=== PATIENT | female | born 2005 | race Caucasian/White ===

== ENCOUNTER 2024-11-09 16:16 | Emergency (ER) | payer SELFPAY ==
[2024-11-09 16:28] VITALS: BP 119/71; PULSE 88; RESP 18; TEMP 36.8; O2SAT 100
--- NOTE | 2024-11-09 16:58 | ED.FEMALEGU ---
HPI - Female Genitourinary General Chief complaint: Urogenital-Female Stated complaint: Std Test Time Seen by Provider: 11/09/24 16:38 Source: patient, RN notes reviewed and old records reviewed Mode of arrival: ambulatory Limitations: no limitations History of Present Illness HPI Narrative: 19 year old female [facility] with complaints of 3 day history of burning with urination, some genital itching and slight discharge. Patient reports that she thinks she has Chlamydia again. Patient reports that secual partner reported to her that he had tested positive for Chlamydia. Patient is here for STD testing. Patient reports that she has Nexplanon for control. Patient reports having unprotected sexual intercourse. MD elicited complaint: UTI Pertinent past history: STI/STD Onset (ago): day(s) (3) Location of symptoms: vaginal Severity: mild Severity scale (1-10): 2 Vaginal discharge: white (scant) Vaginal bleeding: none Urinary symptoms: Dysuria Sexual activity: Yes Related Data Allergies Allergy/AdvReac Type Severity Reaction Status Date / Time No Known Allergies Allergy Verified 11/09/24 16:27 Review of Systems Review of Systems: CONSTITUTIONAL: Denies fever, chills, or sweats. CARDIOVASCULAR: Denies chest pain, palpitations, or edema. RESPIRATORY: Denies cough or dyspnea. GASTROINTESTINAL: Denies abdominal pain, nausea, vomiting, or diarrhea. GENITOURINARY: Reports dysuria,no frequency,no urgency. Denies flank pain or hematuria. reports some vaginal itching and some scant white discharge SKIN: Denies rash or itching. MUSCULOSKELETAL: Denies back pain or myalgia. Denies CVA tenderness NEUROLOGIC: Denies headache All systems reviewed & are unremarkable except as noted in HPI and below PMFSH Past Medical History Medical History (Updated 11/10/24 @ 11:04 by Irma Driscoll NP) Chlamydia Right forearm fracture History of strep sore throat Surgical History Surgical History (Updated 11/10/24 @ 11:05 by Irma Driscoll NP) History of tonsillectomy Social History Social History (Updated 11/10/24 @ 11:05 by Irma Driscoll NP) Smoking status: Never smoker Alcohol intake: current Alcohol use details: social Substance use type: does not use Living arrangements: with family Gender identity (if verbalized by the patient): Female Comments At time of signature, agree with nursing past medical, surgical, social and family history. There is no relevant family history pertinent to the presenting complaint Exam Narrative: GENERAL: Well-appearing, well-nourished, and in no acute distress. HEAD: Normocephalic, atraumatic. NECK: Supple.no lymphadenopathy CHEST: Clear to auscultation. No respiratory distress.SAO2 100% on room air HEART: Regular rate and rhythm. No murmur heard. Normal peripheral pulses. ABDOMEN: Soft, nontender, nondistended, normal active bowel sounds. No CVA tenderness reports burning with urination some perineal itching and scant white discharge. EXTREMITIES: Normal range of motion. No edema. SKIN: Warm, dry, no rash. NEURO: No focal deficits. Alert and oriented x3. Course Course Emergency Course: Patient is aware of diagnosis, understands and agrees to treatment plan.? Anticipatory guidance given.? Patient agrees to follow-up as directed and is aware of reasons to seek care at the emergency department. Portions of this record may have been created with voice recognition software Level of Care: Express Care Visit Vital Signs Vital signs: Vital Signs Temperature 36.8 C 11/09/24 16:28 Pulse Rate 88 11/09/24 16:28 Respiratory Rate 18 11/09/24 16:28 Blood Pressure 119/71 11/09/24 16:28 Pulse Oximetry 100 11/09/24 16:28 Temperature 36.8 C 11/09/24 16:28 Pulse Rate 88 11/09/24 16:28 Respiratory Rate 18 11/09/24 16:28 Blood Pressure 119/71 11/09/24 16:28 Pulse Oximetry 100 11/09/24 16:28 MDM - Female Genitourinary MDM Narrative Medical decision making narrative: Exam findings and UA show no acute concerns or changes; patient is non-toxic appearing and is in no distress.? Patient is appropriate for outpatient treatment and follow-up. Differential Diagnosis Differential diagnosis: Likely urinary tract infection, vaginitis and other (concern for exposure to STD, screening for std) Medical Records Attestation: I reviewed the patient's medical records. Lab Data Attestation: I reviewed the patient's lab results. Lab results narrative: urine dip glucose negative, bilirubin negative, ketone negative, specific gravity greater than or equal to 1.030, blood negative pH 6.0 protein 3+ urobilinogen 0.2, nitrate negative leukocyte negative urine is cloudy urine for STD testing for gonorrhea chlamydia and Trichomonas sent Labs: Lab Results 11/09/24 11/09/24 11/09/24 Range/Units 17:01 17:02 17:06 POC Urine Color Yellow POC Urine Clarity Clear POC Urine pH 6.0 POC Ur Specif [place] 1.030 POC Urine Protein 3+ (Negative) POC Ur Glucose (UA) Negative (Negative) POC Urine Ketones Negative (Negative) POC Urine Blood Negative (Negative) POC Urine Nitrite Negative (Negative) POC Urine Bilirubin Negative (Negative) POC Urine Urobilinogen 0.2 POC U Leukocyte Esteras Negative (Negative) C. trachomatis (PCR) Not detected (NOT DETECTE) N. gonorrhoeae (PCR) Not detected (NOT DETECTE) T. vaginalis (PCR) Not detected (NOT DETECTE) reviewed Critical Care Time Critical Care Time Critical Care Time: No Discharge Plan Discharge Clinical Impression: Potential exposure to STD, Burning with urination Patient Disposition: Home Condition: Stable Instructions: Antibiotic Form, Sexually Transmitted Diseases (ED), Safe Sex Practices (ED) Additional Instructions: Increase fluids especially cranberry juice and water Avoid caffeine and carbonated beverages Antibiotic as directed take Zofran with doxycycline if any nausea, await for test results Practice safe sex always use condoms Tylenol/ibuprofen for pain or fever Follow-up with her primary care provider if further problems or concerns Recheck if you have fever over 101, nausea and vomiting. your test will be sent off to the lab if if gonorrhea is positive you will be called back into for Rocephin shot may need more comprehensive testing [facility] provides free testing on Tuesdays If your symptoms persist, change or worsen significantly before you can contact your personal physician then please, without delay, go to the emergency department for further evaluation. Follow-up with PCP in 7-10 days or sooner if needed Patient Language: Spanish Prescriptions: New doxycycline monohydrate 100 mg capsule 100 mg PO BID Qty: 14 0RF Rx Instructions: take with Zofran and with food metronidazole 500 mg tablet 500 mg PO Q8H Qty: 14 0RF ondansetron 4 mg tablet,disintegrating 4 mg PO Q6H PRN (Reason: nausea and vomiting) Qty: 20 0RF Follow-up/Referrals: PHYSICIAN,SPECIAL EDUCATION PARA PROFESSIONAL [Primary Care Provider] - Time of Disposition: 17:21 Quality [place] Coma Scale Eyes: Open Verbal: Oriented and Alert Motor: Follows Commands Justin Coma Total Score: 15
[2024-11-09 17:09] LABS: EDUAAPPEAR Clear; EDUABILI Negative (Negative); EDUABLOOD Negative (Negative); EDUACOLOR1 Yellow; EDUAGLUCOSE Negative (Negative); EDUAKETONE Negative (Negative); EDUALEUKO Negative (Negative); EDUANITRATE Negative (Negative); EDUAPROTEIN 3+ (Negative); EDUAUROBILI 0.2
[2024-11-09 20:16] LABS: Trichomonas Vag PCR NOT DETECTED (NOT DETECTE)
[2024-11-09 20:39] LABS: Chlamydia trachomatis NOT DETECTED (NOT DETECTE); Neisseria gonorrhoeae PCR NOT DETECTED (NOT DETECTE)
== END 2024-11-09 17:22 | disposition home or self-care (01) ==
PROVIDERS: Emergency Provider Registered Nurse
DX: R30.0 Dysuria (principal); Z11.3 Encounter for screening for infections with a predominantly sexual mode of transmission
CPT/HCPCS: 81003; 87491; 87591; 87661; 99203; G0463